=== PATIENT | male | born 2000 | race Caucasian/White ===

== ENCOUNTER 2019-04-11 11:05 | Day surgery (SDC) | payer BC ==
[~2019-04-11] VITALS: Ht 175.3 cm; Wt 59.0 kg
[2019-04-11] MEDS ORDERED: CEFAZOLIN SOD 1 GM in D5W 50 ML IV ONE (11:30)
[2019-04-11] MEDS ORDERED: PROPOFOL 200MG/ 20ML VIAL (DIPRIVAN) IV ONE (12:15)
[2019-04-11] MEDS ORDERED: BUPIVACAINE /EPINEPHRINE/PF 0.25% 30 ML VIAL INJ ONE (12:15)
[2019-04-11] MEDS ORDERED: fentaNYL CITRATE/PF 100 MCG/2 ML AMP IVP ONE (12:15)
[2019-04-11] MEDS ORDERED: MIDAZOLAM HCL 5 MG/5 ML VIAL IVP ONE (12:15)
[2019-04-11] MEDS ORDERED: DEXAMETHASONE SOD PHOSPHATE 4 MG/ML VIAL IVP ONE (12:15)
[2019-04-11] MEDS ORDERED: SEVOFLURANE 15 MIN GAS INH ONE (12:15)
[2019-04-11] MEDS ORDERED: LR 1,000 ML IV.SOLN IV ONE (12:15)
[2019-04-11] MEDS ORDERED: ROCURONIUM BROMIDE 10 MG/ML (ZEMURON) IV ONE (12:15)
[2019-04-11] MEDS ORDERED: SUCCINYLCHOLINE CHLORIDE 20 MG/ML(QUELICIN) IVP ONE (12:15)
[2019-04-11] MEDS ORDERED: NS IRRIG SOLN 1000 ML IR ONE (12:15)
[2019-04-11] MEDS ORDERED: KETOROLAC TROMETHAMINE 30 MG VIAL IVP ONE (12:15)
[2019-04-11] MEDS ORDERED: LR 1,000 ML IV SCH (12:57)
[2019-04-11] MEDS ORDERED: KETOROLAC TROMETHAMINE 30 MG VIAL IVP PRN (13:00)
[2019-04-11] MEDS ORDERED: MEPERIDINE HCL/PF 25 MG/ML DISP.SYRIN IVP PRN (13:00)
[2019-04-11] MEDS ORDERED: ONDANSETRON HCL 4 MG/2 ML VIAL IVP PRN ×2 (13:00→14:45)
[2019-04-11] MEDS ORDERED: HYDROmorphone 1 MG INJ. 1 MG/ML AMPUL IVP PRN (13:00)
[2019-04-11 14:56] VITALS: BP_SYST 121
[2019-04-11] MEDS ORDERED: MORPHINE 4 MG/ML INJ. SYRINGE IVP PRN (15:00)
[2019-04-11] MEDS ORDERED: ACETAMINOPHEN/CODEINE 300 MG-30 MG TABLET PO PRN (15:00)
[2019-04-11] MEDS ORDERED: ACETAMINOPHEN/CODEINE 300 MG-30 MG TABLET ONE (15:26)
== END 2019-04-11 16:00 | disposition home or self-care (01) ==
LOC: SDS 11:05 → SMU 11:13 → SDS 16:00
PROVIDERS: ATTEND Surgery
DX: K40.90 Unilateral inguinal hernia, without obstruction or gangrene, not specified as recurrent (principal)
CPT/HCPCS: 49505; 88302; C1781; J0690; J7060; J7120; J0330; J1100; J1885; J2250; J2704; J3010; J3490